=== PATIENT | female | born 1995 | race American Indian/Alaskan Native ===

== ENCOUNTER 2017-03-13 22:43 | Emergency (ER) | payer SELFPAY ==
[2017-03-13 22:56] VITALS: BP 137/61
[2017-03-14 03:07] LABS: Bilirubin,Urine NEG (Negative); Blood,Urine NEG (Negative); Ketones,Urine NEG (Negative); Leukocyte Esterase,Urine NEG (Negative); Mucus,Urine FEW /HPF; Nitrite,Urine NEG (Negative); Protein,Urine <15 mg/dL mg/dL (Negative); Urobilinogen,Urine < 2.0 mg/dL (<2.0); WBC,Urine < 1.0 /HPF (0.0-6.0)
--- NOTE | 2017-03-19 22:07 | ED Elopement Review ---
ED Pt Elopement review - Results review Lab results: Laboratory Tests 03/14/17 Unknown Urine Color Yellow Urine Turbidity Clear Urine pH 5.0 Ur Specific [place] 1.023 Urine Protein <15 mg/dl Urine Glucose (UA) Neg Urine Ketones Neg Urine Blood Neg Urine Nitrite Neg Urine Bilirubin Neg Urine Urobilinogen < 2.0 Ur Leukocyte Esterase Neg Urine WBC (Auto) < 1.0 Urine RBC (Auto) 2.0 U Epithel Cells (Auto) 2.0 Urine Mucus Few - Call Back decision Pt Call Back Decision: No action required
== END 2017-03-14 05:00 | disposition left against medical advice (07) ==
LOC: ED 22:43
DX: R10.9 Unspecified abdominal pain (principal); M54.9 Dorsalgia, unspecified; N89.8 Other specified noninflammatory disorders of vagina; Z53.21 Procedure and treatment not carried out due to patient leaving prior to being seen by health care provider
CPT/HCPCS: 81001

== ENCOUNTER 2019-09-22 05:00 | Emergency (ER) | payer SELFPAY | END 2019-09-22 09:52 | disposition home or self-care (01) | LOC: ED 05:00 | CPT/HCPCS: 81001; 81025; 87086; 87210; 87591 ==